=== PATIENT | female | born 1980 | race American Indian/Alaskan Native ===

== ENCOUNTER 2016-12-09 08:19 | Outpatient (CLI) | payer BC ==
--- NOTE | 2016-12-09 10:40 | Ultrasound Report ---
RIGHT UPPER QUADRANT ABDOMINAL ULTRASOUND: 12/09/16 08:19:00 CLINICAL: Elevated liver function tests. FINDINGS: High-resolution ultrasound demonstrated an enlarged liver with moderate diffuse increased echogenicity. A 1 cm oval focus of fatty sparing adjacent to the gallbladder. The gallbladder is partially contracted with no stones. Normal bilateral wall thickness and no pericholecystic fluid. Normal hepatic vasculature and inferior vena cava. Normal intrahepatic and extrahepatic bile ducts. The common bile duct measures 2.0 mm diameter. The pancreas was well imaged and normal. Normal upper abdominal aorta. The right kidney is normal and measures 10.6 x 4.2 x 5.6 cm. No ascites or mass. IMPRESSION: 1. Hepatic steatosis and hepatomegaly. 2. Focal fatty sparing adjacent to the gallbladder. 3. No cholelithiasis.
== END 2016-12-09 08:20 | disposition home or self-care (01) ==
LOC: SPVWC 08:19
PROVIDERS: ATTEND Internal Medicine
DX: K76.0 Fatty (change of) liver, not elsewhere classified (principal); K82.0 Obstruction of gallbladder; R79.89 Other specified abnormal findings of blood chemistry; R16.0 Hepatomegaly, not elsewhere classified
CPT/HCPCS: 76705